=== PATIENT | female | born 1965 | race Caucasian/White ===

== ENCOUNTER 2023-12-03 21:45 | Emergency (ER) | payer OTHER, SELFPAY ==
[2023-12-03 21:47] VITALS: BP 137/71
[2023-12-03 22:07] VITALS: BP 138/109
[2023-12-03 22:09] VITALS: BMI 25.7
--- NOTE | 2023-12-03 22:17 | ED.GENMED ---
History of Present Illness
General
Chief Complaint: Fever
Time Seen by Provider: 12/03/23 22:16
History of Present Illness
History of Present Illness:
HPI: The patient started having chills 3 days ago associate with headache. She has no respiratory or urinary complaints. She went to [facility] initially but was not seen and ultimately came here. She was also concerned because her blood pressure
was home was a systolic of 150s and she does not normally have high blood pressure. She has ongoing headache but feels this is somewhat different than a typical migraine. She is not photophobic and does not have nausea currently.
EXAM:
GENERAL: Appears to be in mild distress
HEENT: Moist oral mucosa, excellent chin to chest with no meningeal signs, negative Brudzinski, negative Kernig's
CARDIOVASCULAR: No murmurs, borderline tachycardic heart rate, regular rhythm, No chest wall tenderness
PULMONARY: No respiratory distress, breath sounds are clear and equal
ABDOMEN: Soft with no peritoneal signs, no tenderness
NEUROLOGIC: Excellent strength all extremities, no coordination deficits
PSYCHIATRIC: Appropriate mental status, normal insight and judgement
EXTREMITIES: Nontender, no edema, moves all extremities equally
SKIN: No rash, no lesions
TIME OF INITIAL ENCOUNTER: 10:15 PM
NUMBER AND COMPLEXITY OF PROBLEMS ADDRESSED AT THE ENCOUNTER
� Chronic conditions affecting care: Migraines, anemia
� Acute Exacerbation and/or Progression of Chronic Illness: This is an acute problem
� Differential Diagnosis includes: Viral syndrome, sepsis, bacteremia, based on symptoms doubt UTI or pneumonia
AMOUNT AND/OR COMPLEXITY OF DATA TO BE REVIEWED AND ANALYZED
� I performed an independent evaluation of and my interpretation is:
EKG:
CT:
X-rays:
Laboratory Studies: White count is 12.9, hemoglobin is 7.6, chemistries and lactic are normal, COVID-negative, flu negative
Other:
� Review of other/old records: No old records available for review in [facility]
� Clinical information was obtained by an independent historian: I spoke to family at bedside
� Prescriptions/Medications Considered but not given:
� Further testing considered but not performed:
RISK OF COMPLICATIONS AND/OR MORBIDITY OR MORTALITY OF PATIENT MANAGEMENT
� Social determinants of health affecting care: Lives at home
� Discussion with other providers:
� Escalation of care including admission/observation vs risk of discharge considered: Although patient was concerned about her blood pressure since she does not normally have high blood pressure her systolic is in the 130s
currently. She does not have any meningeal signs has appropriate mental status. Will give fluids, Toradol, and Tylenol and reassess. I informed patient that her hemoglobin is 7.6. She denies any rectal bleeding. We then performed a digital
rectal examination and there was only a scant amount of stool but was heme-negative.
Phy Exam
Physical Exam
Physical Exam:
See HPI
Course
Orders/Labs/Results
Orders:
Orders
12/03/23 22:20
Acetaminophen [Tylenol] 1,000 mg .ROUTE .STK-MED ONE
12/03/23 22:21
Acetaminophen [Tylenol] 1,000 mg PO NOW STA
12/03/23 22:22
0.9% Sodium Chloride 1000 ml [Nss] 1,000 ml IV BOLUS
Ketorolac [Toradol] 15 mg IV NOW STA
12/03/23 22:27
COVID-19 Antigen Urgent
Source: Nasal Swab
Influenza A+B Rapid Molecular Urgent
SHA Source: Nasal Swab
Specimen Description:
12/03/23 22:37
Complete Blood Count/With Diff Urgent
Comprehensive Metabolic Panel Urgent
Ferritin Urgent
Iron Urgent
Comment: ADD ON
Lactic Acid Q4H
Comment: CANCEL 2nd LACTIC ACID IF 1st LACTIC ACID IS LESS THAN 2
Total Iron Binding Urgent
Blood Culture Urgent
[facility] Source: Blood/Venous
Specimen Description:
12/03/23 22:52
Blood Culture Routine
SHA Source: Blood/Venous
Specimen Description:
12/04/23 00:05
Add On- LAB Urgent
Tests Added?: iron panel, TIBC, ferritin
Abnormal Lab Results
12/03/23
22:37
WBC 12.9 H 10^3/uL
(4.8-10.8)
Hgb 7.6 L g/dL
(12.0-16.0)
Hct 26.2 L %
(37.0-47.0)
MCV 57.0 L fL
(81.0-99.0)
MCH 16.5 L pg
(27.0-31.0)
MCHC 29.0 L g/dL
(33.0-37.0)
RDW 20.7 H %
(11.5-14.5)
Abs Immat Gran (auto) 0.1 H 10^3/uL
(0-0.05)
Absolute Neuts (auto) 10.2 H 10^3/uL
(1.4-6.5)
Absolute Monos (auto) 0.8 H 10^3/uL
(0.1-0.6)
Neutrophils % 79.4 H %
(42.2-75.2)
Lymphocytes % 13.4 L %
(20.5-51.1)
Glucose 104 H mg/dl
(70-99)
Iron 29 L ug/dl
(37-170)
% Saturation 6 L %
(20-50)
Ferritin 3.8 L ng/ml
(11.1-264.0)
12/03/23 22:37
12/03/23 22:37
Vital Signs
Initial and Last Documented VS:
Initial Vital Signs
Temp Pulse Resp BP Pulse Ox
100.7 F H 103 18 137/71 100
12/03/23 21:47 12/03/23 21:47 12/03/23 21:47 12/03/23 21:47 12/03/23 21:47
Last Documented Vital Signs
Temp Pulse Resp BP Pulse Ox
100.7 F H 103 18 138/109 96
12/03/23 21:47 12/03/23 21:47 12/03/23 21:47 12/03/23 22:07 12/03/23 23:45
*Critical Care Note
Total Time (30-74mins, 75-104mins- exclusive of procedures): Not Applicable
ED Attending Note
-
Portions of this chart may have been created with voice recognition software.� Occasional wrong word or��sound alike� substitutions may have occurred due to the inherent limitations of voice recognition software.
Discharge Plan
Departure
Patient Disposition: Home (Routine Discharge)
Date of Disposition: 12/04/23
Time of Disposition: 00:06
Patient with high blood pressure during this ER visit?: Yes
Discharge Problem:
Fever
Instructions: Fever, Adult (DC), Viral Syndrome (DC), BLOOD PRESSURE
Referrals:
NONE,* [Family Provider] -
Activity Restrictions/Additional Instructions:
I suspect that your symptoms are related to a viral syndrome. Your white count is slightly elevated 12.9 and your lactic acid level is normal at 1.1. Of note, your hemoglobin is only 7.6 but your examination showed no blood. I have added on iron
studies. I suggest that you take [id number] iron and follow-up with a primary care doctor. Taking iron supplementation will turn the stool black normally and it may lead to constipation.
Interventions
Interventions:
*Risk Screen - Suicide Last Done: 12/03/23 21:47
*General Assessment Last Done: 12/03/23 22:10
*Neglect/Abuse Screening Last Done: 12/03/23 22:10
ED- Fall Risk Assessment Last Done: 12/03/23 22:10
*ED COVID-19 Vaccine History Last Done: 12/03/23 22:10
*Nursing Disposition Last Done: 12/04/23 00:19
ED- Neurological Assessment Last Done: 12/03/23 22:10
ED-Skin Assessment Last Done: 12/03/23 22:10
Discharge Date and Time
Discharge Date/Time: 12/04/23 00:30
Print Language: NIGERIAN
[2023-12-03] MEDS: TYLENOL 1000 MG PO (22:22)
[2023-12-03] MEDS: NSS 1000 IV (22:43)
[2023-12-03] MEDS: TORADOL 15 MG IV (22:44)
[2023-12-03 22:49] LABS: % Basophils 0.3 % (0-2); % Immature Granulocytes 0.5 % (0-0.5); % Lymphocytes 13.4 % (20.5-51.1); % Monocytes 6.4 % (1.7-9.3); % Neutrophils 79.4 % (42.2-75.2); Absolute Immature Granulocytes 0.1 10^3/uL (0-0.05); Absolute Lymphocytes 1.7 10^3/uL (1.2-3.4); Absolute Monocytes 0.8 10^3/uL (0.1-0.6); Absolute Neutrophils 10.2 10^3/uL (1.4-6.5); Hematocrit 26.2 % (37.0-47.0); Hemoglobin 7.6 g/dL (12.0-16.0); Mean Corpuscular Hgb 16.5 pg (27.0-31.0); Nucleated Red Blood Cells % 0 %; Platelet Count 368 10^3/uL (130-400); Red Cell Dist. Width 20.7 % (11.5-14.5); White Blood Cell Count 12.9 10^3/uL (4.8-10.8)
[2023-12-03 22:51] LABS: COVID-19 Antigen Negative (Negative)
[2023-12-03 23:00] LABS: Lactic Acid 1.1 mmol/L (0.7-2.0)
[2023-12-03 23:02] LABS: ALT (SGPT) 11 U/L (0-35); AST (SGOT) 21 U/L (14-36); Albumin 4.7 g/dl (3.5-5.0); Alkaline Phosphatase 66 U/L (38-126); Blood Urea Nitrogen 7 mg/dl (7-17); Calcium 9.2 mg/dl (8.4-10.2); Carbon Dioxide 25 mmol/L (22-30); Chloride 98 mmol/L (98-107); Estimated Creatinine Clearance 74 ml/min; Glucose 104 mg/dl (70-99); Potassium 4.2 mmol/L (3.5-5.1); Sodium 136 mmol/L (135-145); Total Bilirubin 0.7 mg/dl (0.2-1.3); Total Protein 7.1 g/dl (6.3-8.2); eGFR > 60.00
[2023-12-04 00:40] LABS: Iron 29 ug/dl (37-170)
[2023-12-04 00:50] LABS: Percent Saturation 6 % (20-50); Total Iron Binding Capacity 480 ug/dl (265-497)
[2023-12-04 01:37] LABS: Ferritin 3.8 ng/ml (11.1-264.0)
== END 2023-12-04 00:30 | disposition home or self-care (01) ==
LOC: EMR 21:45
PROVIDERS: EMERGENCY PHYSICIAN Emergency Medicine
DX: R50.9 Fever, unspecified (principal)
CPT/HCPCS: 99283; 96374; 96361; 80053; 82728; 83540; 83550; 83605; 85025; 87040; 87502; 87811